=== PATIENT | female | born 1935 | race African-American/Black ===

== ENCOUNTER 2017-08-16 12:06 | Emergency (ER) | payer OTHER ==
[~2017-08-16 12:06] MED LIST: ALPR-138 PO; AMLO5TAB96 PO; CLAR10TA7 OR; DIAZIDE PO; IRBE1TAB37 PO; LORT5TAB PO; POTA-243 PO; PREV15CA20 PO; ROBA500T PO
[2017-08-16 12:43] VITALS: BP 204/95; PULSE 76; RESP 18; TEMP 98.3; O2SAT 100
[2017-08-16] MEDS ORDERED: AMLO5 PO (13:27)
[2017-08-16] MEDS ORDERED: POTA-255 PO (13:27)
[2017-08-16] MEDS ORDERED: ROBA500T PO (13:27)
[2017-08-16] MEDS ORDERED: FURO1TAB60 PO (13:27)
[2017-08-16] MEDS ORDERED: IRBE75TA5 PO (13:27)
[2017-08-16] MEDS ORDERED: PREV30CA36 PO (13:27)
[2017-08-16] MEDS ORDERED: CLAR10CA3 PO (13:27)
[2017-08-16] MEDS ORDERED: ALPR.25 PO (13:27)
[2017-08-16 15:42] LABS: AUTOMATED NEUTROPHIL # 4.5 TH/MM3 (1.8-7.7); BASOPHIL % 0.5 % (0.0-2.0); EOSINOPHIL # 0.3 TH/MM3 (0-0.4); EOSINOPHIL % 3.3 % (0.0-4.0); HEMATOCRIT 36.1 % (35.0-46.0); HEMOGLOBIN 12.3 GM/DL (11.6-15.3); LYMPHOCYTE # 2.6 TH/MM3 (1.0-4.8); MEAN CELL VOLUME 90.3 FL (80.0-100.0); MEAN CORPUSCULAR HEMOGLOBIN 30.8 PG (27.0-34.0); MEAN CORPUSCULAR HGB CONC 34.1 % (32.0-36.0); MONO % 6.6 % (0.0-8.0); MONOCYTE # 0.5 TH/MM3 (0-0.9); NEUT % 56.6 % (16.0-70.0); PLATELET COUNT 227 TH/MM3 (150-450); WHITE BLOOD COUNT 7.9 TH/MM3 (4.0-11.0)
[2017-08-16 16:03] LABS: ALBUMIN 3.7 GM/DL (3.4-5.0); AST (GOT) 31 U/L (15-37); BICARBONATE 26.8 MEQ/L (21.0-32.0); BLOOD UREA NITROGEN 10 MG/DL (7-18); CALCIUM 8.9 MG/DL (8.5-10.1); CHLORIDE 108 MEQ/L (98-107); CREATININE 0.77 MG/DL (0.50-1.00); GLOMERULAR FILTRATION RATE 86 ML/MIN (>89); GLUCOSE,RANDOM 93 MG/DL (74-106); MAGNESIUM 2.5 MG/DL (1.5-2.5); SODIUM (NA) 144 MEQ/L (136-145)
[2017-08-16 16:07] LABS: ALKALINE PHOSPHATASE 80 U/L (45-117); ALT (GPT) 25 U/L (10-53); TOTAL BILIRUBIN ADULT 0.4 MG/DL (0.2-1.0); TOTAL PROTEIN 7.1 GM/DL (6.4-8.2)
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
[2017-08-16] MEDS ORDERED: ACETAMINOPHEN 325 MG TAB PO ONE (18:15)
--- NOTE | 2017-08-16 19:14 | RADRPT ---
EXAM DATE/TIME: 08/16/2017 18:27 [facility] COMPARISON: No previous studies available for comparison. INDICATIONS : Right ankle swelling. MEDICAL HISTORY : None. SURGICAL HISTORY : None. ENCOUNTER: Initial ACUITY: 3 months PAIN SCORE: 3/10 LOCATION: Right ankle. FINDINGS: Three view exam was performed of the right ankle. The bony structures are in normal alignment. No e vidence of fracture, dislocation. The ankle mortise is intact. No radiopaque foreign bodies are seen . Bony mineralization is normal. CONCLUSION: 1. Soft tissue swelling at the right ankle. No acute fracture. Ha Cosme MD on August 16, 2017 at 19:11 Board Certified Radiologist. This report was verified electronically.
--- NOTE | 2017-08-16 19:15 | RADRPT ---
EXAM DATE/TIME: 08/16/2017 18:29 [facility] COMPARISON: No previous studies available for comparison. INDICATIONS : Left ankle swelling for several months. MEDICAL HISTORY : None. SURGICAL HISTORY : None. ENCOUNTER: Initial ACUITY: 3 months PAIN SCORE: 3/10 LOCATION: Left ankle. FINDINGS: Three view exam was performed of the left ankle. The bony structures are in normal alignment. No ev idence of fracture, dislocation. The ankle mortise is intact. No radiopaque foreign bodies are seen . Bony mineralization is normal. CONCLUSION: 1. Soft tissue swelling at left ankle. No acute bony abnormality. Ha Cosme MD on August 16, 2017 at 19:12 Board Certified Radiologist. This report was verified electronically.
--- NOTE | 2017-08-16 19:16 | RADRPT ---
EXAM DATE/TIME: 08/16/2017 18:32 [facility] COMPARISON: No previous studies available for comparison. INDICATIONS : Lower extremitiy swelling for 3 months. MEDICAL HISTORY : None. SURGICAL HISTORY : None. ENCOUNTER: Initial ACUITY: 3 months PAIN SCORE: 0/10 LOCATION: Bilateral chest FINDINGS: A single view of the chest demonstrates the lungs to be symmetrically aerated without evidence of mas s, infiltrate or effusion. Mild basilar atelectasis. The cardiomediastinal contours are unremarkable. Osseous structures are intact. CONCLUSION: 1. Minimal basilar atelectasis but no consolidation or significant effusion. Ha Cosme MD on August 16, 2017 at 19:12 Board Certified Radiologist. This report was verified electronically.
--- NOTE | 2017-08-16 19:18 | PD ---
Physical Exam Date Seen by Provider: Aug 16, 2017 Time Seen by Provider: 19:03 Data Data Last Documented VS Vital Signs Date Time Temp Pulse Resp B/P (MAP) Pulse Ox O2 Delivery O2 Flow Rate FiO2 08/16/17 20:21 94 16 193/81 (118) 99 Room Air 08/16/17 12:43 98.3 Orders Orders Complete Blood Count With Diff (08/16/17 12:45) Comprehensive Metabolic Panel (08/16/17 12:45) B-Type Natriuretic Peptide (08/16/17 12:45) Magnesium (Mg) (08/16/17 12:45) Ankle, Complete ([id number]) (08/16/17 18:02) Ankle, Complete ([id number]) (08/16/17 18:02) Chest, Single Ap (08/16/17 18:02) Acetaminophen (Tylenol) (08/16/17 18:15) Furosemide Inj (Lasix Inj) (08/16/17 19:45) Hydralazine Inj (Apresoline Inj) (08/16/17 19:45) Amlodipine (Norvasc) (08/16/17 19:45) Ed Discharge Order (08/16/17 20:31) Labs Laboratory Tests Test 08/16/17 13:34 White Blood Count 7.9 TH/MM3 Red Blood Count 4.00 MIL/MM3 Hemoglobin 12.3 GM/DL Hematocrit 36.1 % Mean Corpuscular Volume 90.3 FL Mean Corpuscular Hemoglobin 30.8 PG Mean Corpuscular Hemoglobin Concent 34.1 % Red Cell Distribution Width 13.0 % Platelet Count 227 TH/MM3 Mean Platelet Volume 8.0 FL Neutrophils (%) (Auto) 56.6 % Lymphocytes (%) (Auto) 33.0 % Monocytes (%) (Auto) 6.6 % Eosinophils (%) (Auto) 3.3 % Basophils (%) (Auto) 0.5 % Neutrophils # (Auto) 4.5 TH/MM3 Lymphocytes # (Auto) 2.6 TH/MM3 Monocytes # (Auto) 0.5 TH/MM3 Eosinophils # (Auto) 0.3 TH/MM3 Basophils # (Auto) 0.0 TH/MM3 CBC Comment DIFF FINAL Differential Comment Blood Urea Nitrogen 10 MG/DL Creatinine 0.77 MG/DL Random Glucose 93 MG/DL Total Protein 7.1 GM/DL Albumin 3.7 GM/DL Calcium Level 8.9 MG/DL Magnesium Level 2.5 MG/DL Alkaline Phosphatase 80 U/L Aspartate Amino Transf (AST/SGOT) 31 U/L Alanine Aminotransferase (ALT/SGPT) 25 U/L Total Bilirubin 0.4 MG/DL Sodium Level 144 MEQ/L Potassium Level 3.6 MEQ/L Chloride Level 108 MEQ/L Carbon Dioxide Level 26.8 MEQ/L Anion Gap 9 MEQ/L Estimat Glomerular Filtration Rate 86 ML/MIN B-Type Natriuretic Peptide 106 PG/ML [facility] Medical Record Reviewed: Yes Supervised Visit with RAVINDER: Yes Interpretation(s) Right ankle: Negative for acute fracture. Degenerative changes. Left ankle: Negative for acute fracture. Degenerative changes. Chest x-ray: Mild cardiomegaly. Mild increased vascular markings. Differential Diagnosis . Narrative Course X-ray of the ankles are negative for acute bony injury. Chest x-ray shows only mild increased vascular markings. Patient's BNP is only 109. Patient is currently on Lasix. She is encouraged to continue her Lasix, decrease salt intake and elevate. Follow-up with her primary care doctor. At time of discharge it was noted that the patient has had uncontrolled hypertension since her presentation to the ER today. She had not taken any of her medications prior to coming in. Patient is given her 5 mg dose of Norvasc, 20 mg of hydralazine IV, and 40 mg of Lasix IV. The patient has been reevaluated. Her blood pressure is coming down nicely. She is encouraged to go home and take her remaining blood pressure medications. Patient states verbal understanding. She has agreed to the treatment plan of follow-up. Diagnosis Primary Impression: Bilateral lower extremity edema Additional Impression: hypertension Referrals: Primary Care Physician Patient Instructions: General Instructions, Chronic Hypertension (ED), Leg Edema (ED), Hypertension (ED) Additional Instruction: Continue Lasix as prescribed Continue blood pressure medication as prescribed in follow-up with primary care provider in regards to elevated blood pressure and possible need for blood pressure medication adjustment Continue potassium as prescribed Tylenol as directed and as needed for pain Follow-up with primary care provider Follow-up with neurology at your scheduled appointment Return to the emergency department immediately with worsening of symptoms Disposition: 01 DISCHARGE HOME Condition: Stable Ha Arriaga Aug 16, 2017 19:18
[2017-08-16 19:26] VITALS: BP 226/101; PULSE 71; RESP 15; O2SAT 99
[2017-08-16] MEDS ORDERED: hydrALAZINE HCL 20 MG/ML VIAL IV PUSH ONE (19:45)
[2017-08-16] MEDS ORDERED: amLODIPine BESYLATE 5 MG TAB PO ONE (19:45)
[2017-08-16] MEDS ORDERED: FUROSEMIDE 40 MG/4 ML VIAL IV PUSH ONE (19:45)
[2017-08-16 20:21] VITALS: BP 193/81; PULSE 94; RESP 16; O2SAT 99
[2017-08-16 20:35] VITALS: BP 178/77; PULSE 99; RESP 16; O2SAT 100
== END 2017-08-16 20:59 | disposition home or self-care (01) ==
LOC: NEPD 12:06
DX: R60.0 Localized edema (principal); M25.572 Pain in left ankle and joints of left foot; M25.571 Pain in right ankle and joints of right foot; I10 Essential (primary) hypertension; F41.9 Anxiety disorder, unspecified; K21.9 Gastro-esophageal reflux disease without esophagitis; E07.9 Disorder of thyroid, unspecified
CPT/HCPCS: 71045; 73610; 80053; 83735; 83880; 85025; 96374; 96375; 99284; J0360; J1940

== ENCOUNTER 2018-03-05 18:26 | Observation (INO) ==
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
[2018-03-05 20:50] LABS: Baso # (Auto) 0.1 th/mm3 (0.0-0.2); Baso % (Auto) 0.7 % (0.0-2.0); Eos # (Auto) 0.2 th/mm3 (0.0-0.4); Eos % (Auto) 2.1 % (0.0-4.0); Hematocrit 40.9 % (35.0-46.0); Hemoglobin 13.7 gm/dL (11.6-15.3); Lymph # (Auto) 2.9 th/mm3 (1.0-4.8); Lymph % (Auto) 36.8 % (9.0-44.0); Mean Corpuscular HGB Conc 33.5 % (32.0-36.0); Mean Corpuscular Hemoglobin 31.4 pg (27.0-34.0); Mean Corpuscular Volume 93.8 fL (80.0-100.0); Mean Platelet Volume 7.6 fL (7.0-11.0); Mono # (Auto) 0.5 th/mm3 (0.0-0.9); Mono % (Auto) 6.7 % (0.0-8.0); Neut # (Auto) 4.3 th/mm3 (1.8-7.7); Neut % (Auto) 53.7 % (16.0-70.0); Platelet Count 231 th/mm3 (150-450); Red Blood Count 4.36 mil/mm3 (4.00-5.30); Red Cell Distribution Width 13.8 % (11.6-17.2); White Blood Count 7.9 th/mm3 (4.0-11.0)
--- NOTE | 2018-03-05 20:56 | CT ---
EXAM DATE: 03/05/2018 8:17 PM EDT AGE/SEX: 82 years / Female INDICATIONS: Right side facial numbness, headache. CLINICAL DATA: This is the patient's initial encounter. Patient reports that signs and symptoms have been present for 3 days and indicates a pain score of 4/10. MEDICAL/SURGICAL HISTORY: None. None. RADIATION DOSE: 18.39 CTDI (mGy) COMPARISON: No prior exams available for comparison. TECHNIQUE: Contiguous axial images were obtained using helical multirow detector technique. The vol umetric data was post-processed with multiplanar reconstruction in oblique axial, sagittal, and coron al planes. Using automated exposure control and adjustment of the mA and/or kV according to patient s ize, radiation dose was kept as low as reasonably achievable to obtain optimal diagnostic quality hector ges. DICOM format image data is available electronically for review and comparison. FINDINGS: There is moderate degenerative disc disease in the cervical spine with a minimal degenerative anterol isthesis of C3 on C4. There is partial fusion across C4-5 including at the posterior elements. There is multilevel mild bilateral foraminal encroachment between C3 and C7. No acute fracture or spo ndylolisthesis. CONCLUSION: 1. Moderate degenerative disc disease and facet arthropathy with a minimal degenerative anterolisthe sis of C3 on C4. Advanced left-sided facet arthropathy at C3-4. Partial fusion across C4-5. No acute fracture. Electronically signed by: Ha Cosme MD 03/05/2018 8:55 PM EDT
--- NOTE | 2018-03-05 20:59 | CT ---
EXAM DATE: 03/05/2018 8:17 PM EDT AGE/SEX: 82 years / Female INDICATIONS: Right side facial numbness, headache. CLINICAL DATA: This is the patient's initial encounter. Patient reports that signs and symptoms have been present for 3 days and indicates a pain score of 5/10. MEDICAL/SURGICAL HISTORY: None. None. RADIATION DOSE: 34.21 CTDI (mGy) COMPARISON: No prior exams available for comparison. TECHNIQUE: CT of the head without contrast. Using automated exposure control and adjustment of the mA and/or kV according to patient size, radiation dose was kept as low as reasonably achievable to ob tain optimal diagnostic quality images. DICOM format image data is available electronically for revi ew and comparison. FINDINGS: Cerebrum: The ventricles are normal for age. No evidence of midline shift, mass lesion, hemorrhage or acute infarction. No extraaxial fluid collections are seen. Posterior Fossa: The cerebellum and brainstem are intact. The 4th ventricle is midline. The cerebe llopontine angle is unremarkable. Extracranial: The visualized portion of the orbits is intact. Opacification of the left sphenoid sin us. Skull: The calvaria is intact. No evidence of skull fracture. CONCLUSION: 1. No acute intracranial abnormalities. Sinusitis of the septated left sphenoid. . Electronically signed by: Ha Cosme MD 03/05/2018 8:57 PM EDT
[2018-03-05 21:06] LABS: Albumin 3.7 g/dL (3.4-5.0); Anion Gap 10 meq/L (5-15); Aspartate Aminotransferase 25 U/L (15-37); Blood Urea Nitrogen 16 mg/dL (7-18); Calcium 8.9 mg/dL (8.5-10.1); Carbon Dioxide 25.5 meq/L (21.0-32.0); Chloride 108 meq/L (98-107); Glomerular Filtration Rate 77 mL/min (>89); Glucose,Random 95 mg/dL (74-106); Potassium 3.4 meq/L (3.5-5.1); Sodium 143 meq/L (136-145)
[2018-03-05 21:12] LABS: Alanine Aminotransferase 20 U/L (10-53); Alkaline Phosphatase 81 U/L (45-117); Total Protein 7.4 g/dL (6.4-8.2)
--- NOTE | 2018-03-05 23:33 | P.HPIM ---
History of Present Illness Service: [facility] Primary Care Physician: Yi Oliveira MD Chief Complaint: right facial numbness History of Present Illness: 82 y/o with a history of HTN, hyprothyroid, neuropathy and anxiety presented to the ED with complaints of facial numbness. Patient states 3 days ago her numbness to her right side of her face began. She states it extends from the top of her head down to her neck and at times her neck stiffens. She called her neurologist and he suggested she come to the ER to be evaluated for a stroke. She states the numbness is constant and has been getting increasingly worse over the 3 days. She does have neuropathy in her hands and feet but she states that is unchanged. She denies any weakness in any extremities, dizziness, headache, blurred vision, chest pain or sob. She does complain of a slight pain with palpation to the right jaw area toward the ear. [facility] - History History Provided By: Patient - Medical History Medical History: Medical History (Last Updated 03/06/18 @ 01:26 by LINDSAY Lopez) Anxiety HTN (hypertension) Hypothyroidism Nerve damage of left foot Nerve damage of right foot Ruptured disk - Surgical History Surgical History: Surgical History (Last Reviewed 03/06/18 @ 01:27 by LINDSAY Lopez) Cervical vertebral fusion - Family History Family History: Family History (Last Reviewed 03/06/18 @ 01:27 by LINDSAY Lopez) Father HTN (hypertension) - Social History I have reviewed the patient's Social History: Yes - Tobacco History Second Hand Smoke Exposure: No Tobacco Use In Past 30 Days: No Smoking Status: Never smoker - Alcohol History How Often Do You Have a Drink Containing Alcohol: Never - Substance Use History Substance History: No History of Abuse - Travel History Recent Travel in the [place] Within the Last 8 Weeks: No Recent Travel Out of the Country Within the Last 8 Weeks: No - Immunization History Tetanus Immunization: >5 Years Medications and Allergies Active Medications: Active Medications Acetaminophen (Tylenol) 650 mg PO Q4H PRN PRN Reason: Temp > 100.4 Ondansetron HCl (Zofran Inj) 4 mg IV.PUSH Q6H PRN PRN Reason: NAUSEA OR VOMITING Allergies Allergy/AdvReac Type Severity Reaction Status Date / Time ciprofloxacin Allergy Intermediate Hives Verified 03/05/18 23:49 diazepam Allergy Intermediate Hives Verified 03/05/18 23:49 penicillin G Allergy Mild Hives Verified 03/05/18 23:49 MYELOGRAM DYE AdvReac Intermediate Hives Uncoded 03/05/18 23:49 Home Medications Medication Instructions Recorded Confirmed Type acetaminophen [Tylenol] 325 mg PO Q4-6H PRN 03/05/18 03/05/18 History allopurinol [Zyloprim] 100 mg PO DAILY 03/05/18 03/05/18 History alprazolam [Xanax] 1 mg PO BID 03/05/18 03/05/18 History aspirin [Aspirin Low Dose] 81 mg PO DAILY 03/05/18 03/05/18 History levothyroxine 100 mcg PO DAILY 03/05/18 03/05/18 History ranitidine HCl 150 mg PO BID 03/05/18 03/05/18 History Exam Vital signs: Vital Signs 03/05/18 18:32 03/05/18 18:36 03/05/18 23:29 Temperature 98.5 F Pulse Rate 86 83 77 Respiratory Rate 18 18 17 Blood Pressure 204/83 H 219/84 H 221/90 H Pulse Oximetry 98 99 Intake & Output 03/05/18 03/05/18 03/06/18 06:59 18:59 06:59 Weight 83.007 kg Narrative: GENERAL: This is a well-nourished, well-developed patient, in no apparent distress. CARDIOVASCULAR: Regular rate and rhythm without murmurs, gallops, or rubs. RESPIRATORY: Clear to auscultation. Breath sounds equal bilaterally. No wheezes , rales, or rhonchi. GASTROINTESTINAL: Abdomen soft, non-tender, nondistended. Normal active bowel sounds MUSCULOSKELETAL: +1 bilateral lower extremity edema NEURO: Alert & Oriented x4 to person, place, time, situation. Moves all ext x4 , decreased sensation on right cheek, no extremity drift, no facial droop, tongue midline. Results - Labs CBC & Chem 7: 03/05/18 20:23 03/05/18 20:23 Labs: Short CBC 03/05/18 Range/Units 20:23 WBC 7.9 (4.0-11.0) th/mm3 Hgb 13.7 (11.6-15.3) gm/dL Hct 40.9 (35.0-46.0) % Plt Count 231 (150-450) th/mm3 BMP 03/05/18 20:23 Sodium 143 Potassium 3.4 L Chloride 108 H Carbon Dioxide 25.5 BUN 16 Creatinine 0.85 Calcium 8.9 Cardiac Enzymes 03/05/18 Range/Units 20:23 Troponin I Less than 0.02 L (0.02-0.05) ng/mL Liver Function 03/05/18 Range/Units 20:23 Total Bilirubin 0.4 (0.2-1.0) mg/dL AST 25 (15-37) U/L ALT 20 (10-53) U/L Alkaline Phosphatase 81 (45-117) U/L Albumin 3.7 (3.4-5.0) g/dL - Imaging Impressions Cervical Spine CT 03/05/18 19:51 CONCLUSION: 1. Moderate degenerative disc disease and facet arthropathy with a minimal degenerative anterolisthesis of C3 on C4. Advanced left-sided facet arthropathy at C3-4. Partial fusion across C4-5. No acute fracture. Head CT 03/05/18 19:51 CONCLUSION: 1. No acute intracranial abnormalities. Sinusitis of the septated left sphenoid. . Caprini VTE Risk Assessment Caprini VTE Risk Assessment: Moderate/High Risk (score >= 2) Caprini Risk Assessment Model: Point Value = 1 Point Value = 2 Point Value = 3 Point Value = 5 Age 41-60 Minor surgery BMI > 25 kg/m2 Swollen legs Varicose veins or History of unexplained or recurrent spontaneous Oral contraceptives or hormone replacement Sepsis (< 1 month) Serious lung disease, including pneumonia (< 1 month) Abnormal pulmonary function Acute myocardial infarction Congestive heart failure (< 1 month) History of inflammatory bowel disease Medical patient at bed rest Age 61-74 Arthroscopic surgery Major open surgery (> 45 min) Laparoscopic surgery (> 45 min) Malignancy Confined to bed (> 72 hours) Immobilizing plaster cast Central venous access Age >= 75 History of VTE Family history of VTE Factor V Leiden Prothrombin [id number] Lupus anticoagulant Anticardiolipin antibodies Elevated serum homocysteine Heparin-induced thrombocytopenia Other congenital or acquired thrombophilia Stroke (< 1 month) Elective arthroplasty Hip, pelvis, or leg fracture Acute spinal cord injury (< 1 month) Prophylaxis Regimen: Total Risk Factor Score Risk Level Prophylaxis Regimen 0-1 Low Early ambulation 2 Moderate Order ONE of the following: *Sequential Compression Device (SCD) *Heparin 5000 units SQ BID 3-4 Higher Order ONE of the following medications: *Heparin 5000 units SQ TID *Enoxaparin/Lovenox 40 mg SQ daily (WT < 150 kg, CrCl > 30 mL/min) *Enoxaparin/Lovenox 30 mg SQ daily (WT < 150 kg, CrCl > 10-29 mL/min) *Enoxaparin/Lovenox 30 mg SQ BID (WT < 150 kg, CrCl > 30 mL/min) AND/OR *Sequential Compression Device (SCD) 5 or more Highest Order ONE of the following medications: *Heparin 5000 units SQ TID (Preferred with Epidurals) *Enoxaparin/Lovenox 40 mg SQ daily (WT < 150 kg, CrCl > 30 mL/min) *Enoxaparin/Lovenox 30 mg SQ daily (WT < 150 kg, CrCl > 10-29 mL/min) *Enoxaparin/Lovenox 30 mg SQ BID (WT < 150 kg, CrCl > 30 mL/min) AND *Sequential Compression Device (SCD) Assessment and Plan - Plan 82 y/o with a history of HTN, hyprothyroid, neuropathy and anxiety presented to the ED with complaints of facial numbness. Patient states 3 days ago her numbness to her right side of her face began. Facial numbness, r/o cva Head ct reviewed and shows no acute abnormalities -MRI ordered -Carotid US ordered -Consult neurology for evaluation -neuro checks -Check TSH HTN, chronic, currently stable -Resume home medications, monitor vitals Hypothyroid, chronic -Resume home medications DVT prophylaxis: SCDs Discussed Condition With: Patient and rN
[2018-03-05] MEDS: Acetaminophen 325 MG Tablet PO PRN (23:59)
[2018-03-06] MEDS: Levothyroxine 100 MCG Tablet PO SCH (06:44)
[2018-03-06 07:26] LABS: Baso % (Auto) 0.6 % (0.0-2.0); Eos # (Auto) 0.2 th/mm3 (0.0-0.4); Eos % (Auto) 2.6 % (0.0-4.0); Hematocrit 37.1 % (35.0-46.0); Hemoglobin 12.6 gm/dL (11.6-15.3); Lymph # (Auto) 2.2 th/mm3 (1.0-4.8); Lymph % (Auto) 31.1 % (9.0-44.0); Mean Corpuscular HGB Conc 33.9 % (32.0-36.0); Mean Corpuscular Hemoglobin 31.9 pg (27.0-34.0); Mean Corpuscular Volume 94.1 fL (80.0-100.0); Mean Platelet Volume 7.2 fL (7.0-11.0); Mono # (Auto) 0.6 th/mm3 (0.0-0.9); Mono % (Auto) 8.2 % (0.0-8.0); Neut % (Auto) 57.5 % (16.0-70.0); Platelet Count 232 th/mm3 (150-450); Red Blood Count 3.95 mil/mm3 (4.00-5.30); Red Cell Distribution Width 13.2 % (11.6-17.2)
[2018-03-06 08:09] LABS: Anion Gap 8 meq/L (5-15); Blood Urea Nitrogen 10 mg/dL (7-18); Calcium 8.5 mg/dL (8.5-10.1); Carbon Dioxide 29.7 meq/L (21.0-32.0); Chloride 107 meq/L (98-107); Glomerular Filtration Rate Greater Than 89 mL/min (>89); Glucose,Random 92 mg/dL (74-106); Potassium 3.4 meq/L (3.5-5.1); Sodium 145 meq/L (136-145)
--- NOTE | 2018-03-06 09:33 | MR ---
EXAM DATE: 03/06/2018 7:26 AM EDT AGE/SEX: 82 years / Female INDICATIONS: Right sided weakness. CLINICAL DATA: This is the patient's initial encounter. Patient reports that signs and symptoms have been present for 2 days and indicates a pain score of 0/10. MEDICAL/SURGICAL HISTORY: Hypertension. Hypothyroidism. Fusion, cervical. COMPARISON: No prior exams available for comparison. TECHNIQUE: 3D [id number] MRA was performed. Source images, multiplanar STS MIP, and 3D volum e MIP reconstructions were reviewed. FINDINGS: There is excellent visualization of the major intracranial arteries out to the second-order branch ve ssels. There appears to be a focal short segment stenosis involving the A1 segment on the left. The A1 segment on the right is patent throughout its extent. The M1 segments are patent bilaterally. The anterior cerebral arteries and posterior cerebral arteries are patent. There are bilateral posterior to communicating arteries which are patent. No evidence of cerebral aneurysm or AVM. No segmental occ lusion. CONCLUSION: 1. There is a focal short segment stenosis involving the A1 segment on the left. This most likely fr om atherosclerotic changes. 2. Otherwise, the rest of the MRA of the brain is within normal limits for patient's age. Electronically signed by: Corwin Quinonez MD 03/06/2018 9:32 AM EDT
--- NOTE | 2018-03-06 09:35 | P.CONNEU ---
History of Present Illness Service: Neurology Primary Care Provider: Yi Oliveira MD Chief Complaint: right facial numbness History of Present Illness: 82-year-old female admitted for right facial tingling. States is been ongoing for the past several days wakes up with it and then dissipates. States she has had it before. States she does have a history of chronic neck pain head pain and sensitivity to her whole scalp for the past few years ever since she had a head injury and concussion. She follows up for the symptoms in the outpatient setting by local neurologist. She states she came in for further evaluation as his symptoms felt a little more intense. Denies any vision loss jaw claudication fever night sweats or chills or any focal weakness. She does have chronic gait impairment from her previous concussive injury. CT brain scan negative.'s been found to have significantly elevated blood pressure systolics over 200 since admission Review of Systems All other systems reviewed negative except as stated in [facility] - History History Provided By: Patient - Medical History Medical History: Medical History (Last Updated 03/06/18 @ 01:26 by LINDSAY Lopez) Anxiety HTN (hypertension) Hypothyroidism Nerve damage of left foot Nerve damage of right foot Ruptured disk - Surgical History Surgical History: Surgical History (Last Reviewed 03/06/18 @ 01:27 by LINDSAY Lopez) Cervical vertebral fusion - Family History Family History: Family History (Last Reviewed 03/06/18 @ 01:27 by LINDSAY Lopez) Father HTN (hypertension) - Tobacco History Second Hand Smoke Exposure: No Tobacco Use In Past 30 Days: No Smoking Status: Never smoker - Alcohol History How Often Do You Have a Drink Containing Alcohol: Never - Substance Use History Substance History: No History of Abuse - Travel History Recent Travel in the [place] Within the Last 8 Weeks: No Recent Travel Out of the Country Within the Last 8 Weeks: No - Immunization History Tetanus Immunization: >5 Years Medications and Allergies Active Medications: Active Medications Acetaminophen (Tylenol) 650 mg PO Q4H PRN PRN Reason: Temp > 100.4 Last Admin: 03/05/18 23:59 Dose: 650 mg Allopurinol (Zyloprim) 100 mg PO DAILY DAVID Alprazolam (Xanax) 1 mg PO BID DAVID Last Admin: 03/06/18 08:47 Dose: 1 mg Aspirin (Ecotrin) 81 mg PO DAILY [facility] Famotidine (Pepcid) 20 mg PO BID [facility] Levothyroxine Sodium (Synthroid) 100 mcg PO DAILY@0700 [facility] Last Admin: 03/06/18 06:44 Dose: 100 mcg Ondansetron HCl (Zofran Inj) 4 mg IV.PUSH Q6H PRN PRN Reason: NAUSEA OR VOMITING Allergies Allergy/AdvReac Type Severity Reaction Status Date / Time ciprofloxacin Allergy Intermediate Hives Verified 03/05/18 23:49 diazepam Allergy Intermediate Hives Verified 03/05/18 23:49 penicillin G Allergy Mild Hives Verified 03/05/18 23:49 MYELOGRAM DYE AdvReac Intermediate Hives Uncoded 03/05/18 23:49 Home Medications Medication Instructions Recorded Confirmed Type acetaminophen [Tylenol] 325 mg PO Q4-6H PRN 03/05/18 03/05/18 History alprazolam [Xanax] 0.25 mg PO BID 03/05/18 03/06/18 History aspirin [Aspirin Low Dose] 81 mg PO DAILY 03/05/18 03/05/18 History levothyroxine 100 mcg PO DAILY 03/05/18 03/05/18 History ranitidine HCl 150 mg PO BID 03/05/18 03/05/18 History amlodipine 2.5 mg PO DAILY 03/06/18 03/06/18 History loratadine 10 mg PO DAILY 03/06/18 03/06/18 History losartan 25 mg PO DAILY 03/06/18 03/06/18 History potassium chloride 10 meq PO BID 03/06/18 03/06/18 History Exam Vital signs: Vital Signs 03/05/18 18:32 03/05/18 18:36 03/05/18 23:29 Temperature 98.5 F Pulse Rate 86 83 77 Respiratory Rate 18 18 17 Blood Pressure 204/83 H 219/84 H 221/90 H Pulse Oximetry 98 99 03/06/18 01:56 03/06/18 06:15 03/06/18 06:16 Temperature Pulse Rate 72 69 69 Respiratory Rate 18 20 20 Blood Pressure 187/77 H 186/83 H 186/83 H Pulse Oximetry 99 97 Intake & Output 03/05/18 03/06/18 03/06/18 18:59 06:59 18:59 Weight 83.007 kg Narrative: GENERAL: in NAD, SKIN: Warm and dry. Generalized sensitivity on her whole scalp no discrete area HEAD: Atraumatic. Normocephalic. EYES: Pupils equal and round. No scleral icterus. ENT: No nasal bleeding or discharge. Mucous membranes pink and moist. NECK: Trachea midline. No JVD. CARDIOVASCULAR: Regular rate and rhythm. RESPIRATORY: No accessory muscle use. GASTROINTESTINAL: Abdomen soft, non-tender, nondistended. MUSCULOSKELETAL: Extremities without clubbing, cyanosis, or edema. No obvious deformities. NEUROLOGICAL: Awake and alert. Oriented 2-3, no aphasia, fluent articulate, No facial asymmetry, OU 3-2mm, eomi, VFF, No drift, Motor grossly within normal limits. Five out of 5 muscle strength in the arms and legs. Tone normal in all 4 limbs, Sensory normal in all 4 extremities to pin, msr 1-2+ sym, no clonus, planterflexor, gait not assessed secondary to fall risk PSYCHIATRIC: Appropriate mood and affect; insight and judgment normal. - Constitutional no acute distress - Routine HEENT Exam Head: Present: normocephalic Eye: Present: EOMI Results - Labs CBC & Chem 7: 03/06/18 06:55 03/06/18 06:55 Labs: Laboratory Results - last 24 hr 03/05/18 03/05/18 03/05/18 20:23 20:23 20:23 WBC 7.9 RBC 4.36 Hgb 13.7 Hct 40.9 MCV 93.8 MCH 31.4 MCHC 33.5 RDW 13.8 Plt Count 231 MPV 7.6 Neut % (Auto) 53.7 Lymph % (Auto) 36.8 [place] % (Auto) 6.7 Eos % (Auto) 2.1 Baso % (Auto) 0.7 Neut # (Auto) 4.3 Lymph # (Auto) 2.9 [place] # (Auto) 0.5 Eos # (Auto) 0.2 Baso # (Auto) 0.1 WBC Differential . Differential Comment Auto diff final Sodium 143 Potassium 3.4 L Chloride 108 H Carbon Dioxide 25.5 Anion Gap 10 BUN 16 Creatinine 0.85 Estimated GFR 77 L Random Glucose 95 Calcium 8.9 Total Bilirubin 0.4 AST 25 ALT 20 Alkaline Phosphatase 81 Troponin I Less than 0.02 L Total Protein 7.4 Albumin 3.7 TSH 4.360 H 03/06/18 03/06/18 06:55 06:55 WBC 7.0 RBC 3.95 L Hgb 12.6 Hct 37.1 MCV 94.1 MCH 31.9 MCHC 33.9 RDW 13.2 Plt Count 232 MPV 7.2 Neut % (Auto) 57.5 Lymph % (Auto) 31.1 [place] % (Auto) 8.2 H Eos % (Auto) 2.6 Baso % (Auto) 0.6 Neut # (Auto) 4.0 Lymph # (Auto) 2.2 [place] # (Auto) 0.6 Eos # (Auto) 0.2 Baso # (Auto) 0.0 WBC Differential . Differential Comment Auto diff final Sodium 145 Potassium 3.4 L Chloride 107 Carbon Dioxide 29.7 Anion Gap 8 BUN 10 Creatinine 0.67 Estimated GFR Greater than 89 Random Glucose 92 Calcium 8.5 Total Bilirubin AST ALT Alkaline Phosphatase Troponin I Total Protein Albumin TSH - Imaging Impressions Cervical Spine CT 03/05/18 19:51 CONCLUSION: 1. Moderate degenerative disc disease and facet arthropathy with a minimal degenerative anterolisthesis of C3 on C4. Advanced left-sided facet arthropathy at C3-4. Partial fusion across C4-5. No acute fracture. Head CT 03/05/18 19:51 CONCLUSION: 1. No acute intracranial abnormalities. Sinusitis of the septated left sphenoid. . Review/Management - Diagnosis (1) Hypertensive encephalopathy Code(s): I67.4 - Hypertensive encephalopathy Status: Acute Current Visit: Yes (2) Cervical spondylosis Code(s): M47.812 - Spondylosis without myelopathy or radiculopathy, cervical region Status: Acute Current Visit: Yes (3) Concussion Code(s): S06.0X9A - Concussion with loss of consciousness of unspecified duration, initial encounter Status: Acute Current Visit: Yes (4) Gait disorder Code(s): R26.9 - Unspecified abnormalities of gait and mobility Status: Acute Current Visit: Yes (5) Neuropathy Code(s): G62.9 - Polyneuropathy, unspecified Status: Acute Current Visit: Yes (6) Transient cerebral ischemia Code(s): G45.9 - Transient cerebral ischemic attack, unspecified Status: Acute Current Visit: Yes - Review/Management Plan: Current symptoms may be related to his severe hypertension with exacerbation of previous chronic neuralgia Recommendation Blood pressure control Aspirin Follow-up imaging Low-dose gabapentin Therapy Follow exam Behavioral modification and risk factor reduction. Weight loss, blood pressure control, blood sugar control, lipid control. Exercise (6) Transient cerebral ischemia Qualifiers: Transient cerebral ischemia type: unspecified Qualified Code(s): G45.9 - Transient cerebral ischemic attack, unspecified
--- NOTE | 2018-03-06 09:38 | MR ---
EXAM DATE: 03/06/2018 7:26 AM EDT AGE/SEX: 82 years / Female INDICATIONS: Right sided weakness. Headache CLINICAL DATA: This is the patient's initial encounter. Patient reports that signs and symptoms have been present for 2 days and indicates a pain score of 0/10. MEDICAL/SURGICAL HISTORY: Hypertension. Hypothyroidism. Fusion, cervical. COMPARISON: No prior exams available for comparison. TECHNIQUE: Multiplanar, multisequence examination of the brain was performed without contrast. FINDINGS: Cerebrum: The ventricles are normal for age with moderate atrophic change with sulcal and ventricula r prominence. No evidence of midline shift, mass lesion, hemorrhage or acute infarction. No extraaxi al fluid collections are seen. The pituitary gland and suprasellar cistern are normal in configurati on. White Matter: On the FLAIR weighted images there is increased signal noted in the white matter most characteristic of chronic small vessel ischemic change. Posterior Fossa: The cerebellum and brainstem are intact. The 4th ventricle is midline. The cerebel lopontine angle is unremarkable. The cerebellar tonsils are normal in position. Diffusion Imaging: No focal areas of restricted diffusion are seen. No evidence of acute infarction . Extracranial: The visualized portions of the orbits are unremarkable. There is opacification the lef t sphenoid sinus. CONCLUSION: 1. No acute hemorrhage, mass or infarction. 2. Opacification left sphenoid sinus. 3. Atrophy and chronic small vessel ischemic changes. Electronically signed by: Brenden Murphy MD 03/06/2018 9:36 AM EDT
--- NOTE | 2018-03-06 09:41 | P.PN ---
Subjective Interval history: Patient is resting comfortably in bed. She is still experiencing right facial pain and numbness but states it is "settling down". She has no other concerns at this time. Patient denies visual changes, chest pain, fever, chills, nausea , vomiting. Physical Exam Vital signs: Vital Signs 03/05/18 18:32 03/05/18 18:36 03/05/18 23:29 Temperature 98.5 F Pulse Rate 86 83 77 Respiratory Rate 18 18 17 Blood Pressure 204/83 H 219/84 H 221/90 H Pulse Oximetry 98 99 03/06/18 01:56 03/06/18 06:15 03/06/18 06:16 Temperature Pulse Rate 72 69 69 Respiratory Rate 18 20 20 Blood Pressure 187/77 H 186/83 H 186/83 H Pulse Oximetry 99 97 Intake & Output 03/05/18 03/06/18 03/06/18 18:59 06:59 18:59 Weight 83.007 kg - Constitutional no acute distress - Routine HEENT Exam Head: Present: normocephalic, atraumatic Eye: Present: EOMI, PERRL ENT: Present: mucous membranes moist - Routine Neck Exam Present: full ROM. Absent: JVD, carotid bruit - Routine Respiratory Exam Present: CTA bilaterally. Absent: rhonchi, stridor, wheezes, crackles - Routine Cardiovascular Exam Present: RRR, S1, S2. Absent: murmur, gallop, rubs - Routine Abdominal Exam Present: soft, normoactive bowel sounds. Absent: tenderness, distended - Routine Extremities Exam Present: edema (of the lower extremiy), full ROM. Absent: cyanosis, clubbing - Routine Skin Exam Present: intact, dry. Absent: cyanosis, erythema - Routine Neurological Exam Present: alert, oriented X3, CN II-XII intact. Absent: motor deficit Results - Labs CBC & Chem 7: 03/06/18 06:55 03/06/18 06:55 Laboratory Results - last 24 hr 03/05/18 03/05/18 03/05/18 20:23 20:23 20:23 WBC 7.9 RBC 4.36 Hgb 13.7 Hct 40.9 MCV 93.8 MCH 31.4 MCHC 33.5 RDW 13.8 Plt Count 231 MPV 7.6 Neut % (Auto) 53.7 Lymph % (Auto) 36.8 [place] % (Auto) 6.7 Eos % (Auto) 2.1 Baso % (Auto) 0.7 Neut # (Auto) 4.3 Lymph # (Auto) 2.9 [place] # (Auto) 0.5 Eos # (Auto) 0.2 Baso # (Auto) 0.1 WBC Differential . Differential Comment Auto diff final Sodium 143 Potassium 3.4 L Chloride 108 H Carbon Dioxide 25.5 Anion Gap 10 BUN 16 Creatinine 0.85 Estimated GFR 77 L Random Glucose 95 Calcium 8.9 Total Bilirubin 0.4 AST 25 ALT 20 Alkaline Phosphatase 81 Troponin I Less than 0.02 L Total Protein 7.4 Albumin 3.7 TSH 4.360 H 03/06/18 03/06/18 06:55 06:55 WBC 7.0 RBC 3.95 L Hgb 12.6 Hct 37.1 MCV 94.1 MCH 31.9 MCHC 33.9 RDW 13.2 Plt Count 232 MPV 7.2 Neut % (Auto) 57.5 Lymph % (Auto) 31.1 [place] % (Auto) 8.2 H Eos % (Auto) 2.6 Baso % (Auto) 0.6 Neut # (Auto) 4.0 Lymph # (Auto) 2.2 [place] # (Auto) 0.6 Eos # (Auto) 0.2 Baso # (Auto) 0.0 WBC Differential . Differential Comment Auto diff final Sodium 145 Potassium 3.4 L Chloride 107 Carbon Dioxide 29.7 Anion Gap 8 BUN 10 Creatinine 0.67 Estimated GFR Greater than 89 Random Glucose 92 Calcium 8.5 Total Bilirubin AST ALT Alkaline Phosphatase Troponin I Total Protein Albumin TSH - Imaging Impressions Cervical Spine CT 03/05/18 19:51 CONCLUSION: 1. Moderate degenerative disc disease and facet arthropathy with a minimal degenerative anterolisthesis of C3 on C4. Advanced left-sided facet arthropathy at C3-4. Partial fusion across C4-5. No acute fracture. Head CT 03/05/18 19:51 CONCLUSION: 1. No acute intracranial abnormalities. Sinusitis of the septated left sphenoid. . Head MRA 03/06/18 00:00 CONCLUSION: 1. There is a focal short segment stenosis involving the A1 segment on the left. This most likely from atherosclerotic changes. 2. Otherwise, the rest of the MRA of the brain is within normal limits for patient's age. Assessment and Plan - Plan Mrs. Lee is an 82 year old female admitted for worsened right facial pain tingling for the past several days. She has a history of extremity neuropathy, chronic neck pain and scalp sensitivity. Initial workup with CT C Spine, CT head, CTA, MRI, MRA, carotid U/S were negative for acute processes. Assessment/Plan: Chronic neuralgia -CT C Spine, CT Head, CTA, MRI, MRA, carotid U/S negative for acute processes. -Neuro consulted - Possible chronic neuralgia with exacerbation due to HTN -Neuro recs: -Blood pressure control -Start gabapentin, aspirin -Therapy -Follow exam -Follow-up imaging Hypertension, poorly controlled -Hydralazine PRN Hypothyroid -continue levothyroxine 100mcg Code Status: Full DVT prophylaxis:SCDs
--- NOTE | 2018-03-06 09:56 | US ---
EXAM DATE: 03/06/2018 12:00 AM EDT AGE/SEX: 82 years / Female INDICATIONS: Transient ischemic attack. CLINICAL DATA: This is the patient's initial encounter. Patient reports that signs and symptoms have been present for 1 day and indicates a pain score of 0/10. MEDICAL/SURGICAL HISTORY: Hypertension. Hypothyroidism. Anxiety. Bilateral feet nerve damage. Ruptured disk. . Cervical vertebral fusion. COMPARISON: No prior exams available for comparison. VELOCITY PARAMETERS: ICA/CCA Ratio: Right 2.1 , Left 1.6 ICA: Right 172.4 cm/sec, Left 141.5 cm/sec CCA: Right 82.3 cm/sec, Left 88.5 cm/sec ECA: Right 96.3 cm/sec, Left 72.3 cm/sec Vertebral: Right 56.8 cm/sec antegrade, Left 50.3 cm/sec antegrade FINDINGS: Right Carotid: Moderate arteriosclerotic plaque is visualized.The waveforms are within normal limits . Left Carotid: Moderate arteriosclerotic plaque is visualized. The waveforms are within normal limits . Other: None. CONCLUSION: There is moderate atherosclerotic plaquing at both carotid bifurcations. However, no foca l high-grade or hemodynamically significant stenosis is demonstrated. Electronically signed by: Corwin Quinonez MD 03/06/2018 9:54 AM EDT
--- NOTE | 2018-03-06 10:47 | MR ---
EXAM DATE: 03/06/2018 9:46 AM EDT AGE/SEX: 82 years / Female INDICATIONS: . Right side numbness. CLINICAL DATA: This is the patient's initial encounter. Patient reports that signs and symptoms have been present for 2 days and indicates a pain score of 0/10. MEDICAL/SURGICAL HISTORY: Hypertension. Hypothyroidism. Fusion, cervical. COMPARISON: [facility] [place] [facility] 07/16/2015. [facility] [place] CERVICAL SPINE W/O CONTRAST, 03/05/2018. . TECHNIQUE: Multiplanar, multisequence MRI examination of the cervical spine was performed without co ntrast. FINDINGS: Vertebrae: Normal vertebral body height. Homogeneous marrow signal. There are mild to moderate prim rogelio degenerative changes noted throughout the cervical spine. There is disc degeneration with disc sp cee narrowing from C3 through C7. No compression fracture injuries are demonstrated. Alignment: There is very mild anterior spondylolisthesis of C3 over C4 and C7 over T1. Cord: Normal configuration and signal. Post Fossa: The cerebellar tonsils are normal in position. C2-C3: The thecal sac has a normal configuration. There is no evidence of disc herniation or spinal canal stenosis. The neural foramina are patent bilaterally. C3-C4: Mild broad-based bulging. The neural foramina appear patent bilaterally. There is bilateral f acet arthritis. C4-C5: The thecal sac has a normal configuration. There is no evidence of disc herniation or spinal canal stenosis. The neural foramina are patent bilaterally. C5-C6: Mild broad-based bulging. The neural foramina are patent bilaterally. Mild facet arthritis. C6-C7: Diffuse Broad-based bulging. The neural foramina are patent bilaterally.. Mild facet arthriti s. C7-T1: No epidural impressions seen. Moderate facet arthritis. CONCLUSION: 1. There is mild to moderate primary degenerative changes, disc degeneration and disc space narrowin g throughout the cervical spine. 2. Very mild anterior spondylolisthesis of C3 over C4 and C7 over T1. 3. Mild broad-based bulging C3-4 and C5-6. 4. Diffuse broad-based bulging C6-7. 5. Bilateral facet arthritis at multiple levels. Electronically signed by: Corwin Quinonez MD 03/06/2018 10:46 AM EDT
[2018-03-06 11:07] LABS: Vitamin B12 1634 pg/mL (193-986)
[2018-03-06] MEDS: Famotidine 20 MG Tablet PO SCH ×2 (11:16→20:20)
[2018-03-06] MEDS: Allopurinol 100 MG Tablet PO SCH (11:16)
[2018-03-06] MEDS: Gabapentin 100 MG Capsule PO SCH ×3 (11:18→17:38)
[2018-03-06] MEDS ORDERED: hydrALAZINE 10 MG Tablet PO PRN (12:33)
[2018-03-06] MEDS ORDERED: hydrALAZINE HCl Inj 20 MG/ML Vial IV.PUSH ONE (12:33)
--- NOTE | 2018-03-06 12:33 | P.PN ---
Subjective Interval history: Patient is resting comfortably in bed. Still with right facial pain and numbness but states it is "settling down". No problem with swallowing. Patient denies change in vision or new motor deficit. Denies chest pain, shortness of breath, fever, chills, nausea, vomiting. Physical Exam Vital signs: Vital Signs 03/05/18 18:32 03/05/18 18:36 03/05/18 23:29 Temperature 98.5 F Pulse Rate 86 83 77 Respiratory Rate 18 18 17 Blood Pressure 204/83 H 219/84 H 221/90 H Pulse Oximetry 98 99 03/06/18 01:56 03/06/18 06:15 03/06/18 06:16 Temperature Pulse Rate 72 69 69 Respiratory Rate 18 20 20 Blood Pressure 187/77 H 186/83 H 186/83 H Pulse Oximetry 99 97 03/06/18 11:04 Temperature Pulse Rate 88 Respiratory Rate 18 Blood Pressure 206/88 H Pulse Oximetry 100 Intake & Output 03/05/18 03/06/18 03/06/18 18:59 06:59 18:59 Weight 83.007 kg Narrative: GENERAL: in NAD, SKIN: Warm and dry. Generalized sensitivity on her whole scalp no discrete area HEAD: Atraumatic. Normocephalic. EYES: Pupils equal and round. No scleral icterus. ENT: No nasal bleeding or discharge. Mucous membranes pink and moist. NECK: Trachea midline. No JVD. CARDIOVASCULAR: Regular rate and rhythm. RESPIRATORY: No accessory muscle use. GASTROINTESTINAL: Abdomen soft, non-tender, nondistended. MUSCULOSKELETAL: Extremities without clubbing, cyanosis, or edema. No obvious deformities. NEUROLOGICAL: Awake and alert. Oriented 2-3, no aphasia, fluent articulate, No facial asymmetry, OU 3-2mm, eomi, VFF, No drift, Motor grossly within normal limits. Five out of 5 muscle strength in the arms and legs. Tone normal in all 4 limbs, Sensory normal in all 4 extremities to pin, msr 1-2+ sym, no clonus, planterflexor, gait not assessed secondary to fall risk PSYCHIATRIC: Appropriate mood and affect; insight and judgment normal. Results - Labs CBC & Chem 7: 03/06/18 06:55 03/06/18 06:55 Laboratory Results - last 24 hr 03/05/18 03/05/18 03/05/18 20:23 20:23 20:23 WBC 7.9 RBC 4.36 Hgb 13.7 Hct 40.9 MCV 93.8 MCH 31.4 MCHC 33.5 RDW 13.8 Plt Count 231 MPV 7.6 Neut % (Auto) 53.7 Lymph % (Auto) 36.8 [place] % (Auto) 6.7 Eos % (Auto) 2.1 Baso % (Auto) 0.7 Neut # (Auto) 4.3 Lymph # (Auto) 2.9 [place] # (Auto) 0.5 Eos # (Auto) 0.2 Baso # (Auto) 0.1 WBC Differential . Differential Comment Auto diff final ESR Sodium 143 Potassium 3.4 L Chloride 108 H Carbon Dioxide 25.5 Anion Gap 10 BUN 16 Creatinine 0.85 Estimated GFR 77 L Random Glucose 95 Calcium 8.9 Total Bilirubin 0.4 AST 25 ALT 20 Alkaline Phosphatase 81 Troponin I Less than 0.02 L C-Reactive Protein Total Protein 7.4 Albumin 3.7 Vitamin B12 TSH 4.360 H 03/06/18 03/06/18 03/06/18 06:55 06:55 06:55 WBC 7.0 RBC 3.95 L Hgb 12.6 Hct 37.1 MCV 94.1 MCH 31.9 MCHC 33.9 RDW 13.2 Plt Count 232 MPV 7.2 Neut % (Auto) 57.5 Lymph % (Auto) 31.1 [place] % (Auto) 8.2 H Eos % (Auto) 2.6 Baso % (Auto) 0.6 Neut # (Auto) 4.0 Lymph # (Auto) 2.2 [place] # (Auto) 0.6 Eos # (Auto) 0.2 Baso # (Auto) 0.0 WBC Differential . Differential Comment Auto diff final ESR 16 Sodium 145 Potassium 3.4 L Chloride 107 Carbon Dioxide 29.7 Anion Gap 8 BUN 10 Creatinine 0.67 Estimated GFR Greater than 89 Random Glucose 92 Calcium 8.5 Total Bilirubin AST ALT Alkaline Phosphatase Troponin I C-Reactive Protein Total Protein Albumin Vitamin B12 TSH 03/06/18 06:55 WBC RBC Hgb Hct MCV MCH MCHC RDW Plt Count MPV Neut % (Auto) Lymph % (Auto) [place] % (Auto) Eos % (Auto) Baso % (Auto) Neut # (Auto) Lymph # (Auto) [place] # (Auto) Eos # (Auto) Baso # (Auto) WBC Differential Differential Comment ESR Sodium Potassium Chloride Carbon Dioxide Anion Gap BUN Creatinine Estimated GFR Random Glucose Calcium Total Bilirubin AST ALT Alkaline Phosphatase Troponin I C-Reactive Protein Less than 0.29 Total Protein Albumin Vitamin B12 1634 H TSH - Imaging Impressions Cervical Spine CT 03/05/18 19:51 CONCLUSION: 1. Moderate degenerative disc disease and facet arthropathy with a minimal degenerative anterolisthesis of C3 on C4. Advanced left-sided facet arthropathy at C3-4. Partial fusion across C4-5. No acute fracture. Head CT 03/05/18 19:51 CONCLUSION: 1. No acute intracranial abnormalities. Sinusitis of the septated left sphenoid. . Carotid Doppler Study 03/06/18 00:00 CONCLUSION: There is moderate atherosclerotic plaquing at both carotid bifurcations. However, no focal high-grade or hemodynamically significant stenosis is demonstrated. Head MRA 03/06/18 00:00 CONCLUSION: 1. There is a focal short segment stenosis involving the A1 segment on the left. This most likely from atherosclerotic changes. 2. Otherwise, the rest of the MRA of the brain is within normal limits for patient's age. Head MRI 03/06/18 07:03 CONCLUSION: 1. No acute hemorrhage, mass or infarction. 2. Opacification left sphenoid sinus. 3. Atrophy and chronic small vessel ischemic changes. Cervical Spine MRI 03/06/18 09:29 CONCLUSION: 1. There is mild to moderate primary degenerative changes, disc degeneration and disc space narrowing throughout the cervical spine. 2. Very mild anterior spondylolisthesis of C3 over C4 and C7 over T1. 3. Mild broad-based bulging C3-4 and C5-6. 4. Diffuse broad-based bulging C6-7. 5. Bilateral facet arthritis at multiple levels. Assessment and Plan - Plan Mrs. Lee is an 82 year old female admitted for worsened right facial pain tingling for the past several days. She has a history of extremity neuropathy, chronic neck pain and scalp sensitivity. Initial workup with CT C Spine, CT head, CTA, MRI, MRA, carotid U/S were negative for acute processes. Chronic neuralgia -CT C Spine, CT Head, CTA, MRI, MRA, carotid U/S negative for acute processes. -Neuro consulted - Possible chronic neuralgia with exacerbation due to HTN -Neuro recs: -Blood pressure control -Start gabapentin, aspirin -Therapy -Follow exam -Follow-up imaging Hypertension, poorly controlled -Hydralazine PRN -Restart home meds -Monitor and adjust as need Hypothyroid -continue levothyroxine 100mcg Code Status: Full DVT prophylaxis:SCDs Discussed with the patient, nurse, family at bedside
[2018-03-06] MEDS ORDERED: Labetalol HCl Inj 100 MG/20 ML Vial IV.PUSH ONE ×2 (13:00)
--- NOTE | 2018-03-06 15:19 | ECG ---
Date Performed: 03/05/2018 Time Performed: 20:06:51 PTAGE: 82 years EKG: Sinus rhythm INCOMPLETE RIGHT BUNDLE BRANCH BLOCK LEFT ANTERIOR FASCICULAR BLOCK ABNORMAL ECG PREVIOUS TRACING : 03/02/2018 11.30 Since the previous tracing, no significant change noted DOCTOR: Maycol Tyson Interpretating Date/Time 03/06/2018 15:18:15
[2018-03-06] MEDS: Acetaminophen 325 MG Tablet PO PRN ×2 (15:45→20:20)
[2018-03-07 01:25] VITALS: RESP 16
[2018-03-07] MEDS: Levothyroxine 100 MCG Tablet PO SCH (06:23)
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
[2018-03-07] MEDS: Famotidine 20 MG Tablet PO SCH (10:34)
[2018-03-07] MEDS: Allopurinol 100 MG Tablet PO SCH (10:35)
[2018-03-07] MEDS: Gabapentin 100 MG Capsule PO SCH ×2 (10:35→14:27)
[2018-03-07] MEDS: Acetaminophen 325 MG Tablet PO PRN (10:36)
[2018-03-07 12:11] VITALS: BP 121/56; PULSE 78; TEMP 97.4; O2SAT 99
--- NOTE | 2018-03-07 13:02 | P.PN ---
Subjective Interval history: Patient is seen lying in bed. She reports that her neck pain is feeling better. She appears to be a somewhat questionable historian. Nursing denies any adverse overnight events. Physical Exam Vital signs: Vital Signs 03/06/18 13:20 03/06/18 14:04 03/06/18 16:28 Temperature 97.7 F 97.7 F Pulse Rate 67 70 70 Respiratory Rate 18 20 18 Blood Pressure 144/63 H 150/74 H 175/84 H Pulse Oximetry 99 98 95 03/06/18 20:00 03/07/18 00:00 03/07/18 04:00 Temperature 97.9 F 97.6 F 97.6 F Pulse Rate 64 65 66 Respiratory Rate 18 16 16 Blood Pressure 149/69 H 118/56 L 133/67 Pulse Oximetry 98 98 99 03/07/18 07:34 03/07/18 10:30 03/07/18 12:00 Temperature 97.7 F 97.4 F L Pulse Rate 66 67 78 Respiratory Rate 16 16 Blood Pressure 142/65 H 121/56 L Pulse Oximetry 98 99 Intake & Output 03/06/18 03/07/18 03/07/18 18:59 06:59 18:59 Weight 83.007 kg Other: # Voids 1 Date of Last Bowel Movement 03/05/18 03/05/18 03/05/18 Weight On Admission 83.007 kg Narrative: GENERAL: Well-nourished, well-developed adult female in no obvious distress. SKIN: Warm and dry. HEAD: Atraumatic. Normocephalic. CARDIOVASCULAR: Regular rate and rhythm. RESPIRATORY: No accessory muscle use. Clear to auscultation. Breath sounds equal bilaterally. GASTROINTESTINAL: Abdomen soft, non-tender, non-distended. Positive bowel sounds. MUSCULOSKELETAL: Extremities without clubbing, cyanosis, or edema. No obvious deformities. Mild cervical spine tenderness. NEUROLOGICAL: Awake and alert. No obvious cranial nerve deficits. Motor grossly within normal limits. Normal speech. Facial features equal without droop. Results - Labs CBC & Chem 7: 03/06/18 06:55 03/06/18 06:55 Assessment and Plan - Plan Mrs. Lee is an 82 year old female admitted for worsened right facial pain tingling for the past several days. She has a history of extremity neuropathy, chronic neck pain and scalp sensitivity. Initial workup with CT C Spine, CT head, CTA, MRI, MRA, carotid U/S were negative for acute processes. Assessment/Plan: Chronic neuralgia -Neuro consulted - chronic neuralgia with exacerbation due to HTN; OK to discharge -Blood pressure control -Start gabapentin, aspirin Hypertension, poorly controlled -Hydralazine PRN Hypothyroid -continue levothyroxine 100mcg Code Status: Full DVT prophylaxis:SCDs
--- NOTE | 2018-03-07 13:07 | P.DS ---
Date of admission: 03/05/18 21:52 Primary care physician: Yi Oliveira MD Attending physician on discharge: Natacha Sarkar Anticipated date of discharge: 03/07/18 Brief History from admission: 82 y/o with a history of HTN, hyprothyroid, neuropathy and anxiety presented to the ED with complaints of facial numbness. Patient states 3 days ago her numbness to her right side of her face began. She states it extends from the top of her head down to her neck and at times her neck stiffens. She called her neurologist and he suggested she come to the ER to be evaluated for a stroke. She states the numbness is constant and has been getting increasingly worse over the 3 days. She does have neuropathy in her hands and feet but she states that is unchanged. She denies any weakness in any extremities, dizziness, headache, blurred vision, chest pain or sob. She does complain of a slight pain with palpation to the right jaw area toward the ear. DS: Diagnosis - Discharge Diagnosis (1) Hypertension Status: Chronic (2) Cervical spondylosis Status: Chronic (3) Neuropathy Status: Chronic DS: Medications - Discharge Medications Prescriptions: atorvastatin 20 mg PO HS #30 tab DS: Summary Hospital Course: Mrs. Lee is an 82 year old female admitted for worsened right facial pain tingling for the past several days. She has a history of extremity neuropathy, chronic neck pain and scalp sensitivity. Initial workup with CT C Spine, CT head, CTA, MRI, MRA, carotid U/S were negative for acute processes. Neuro consulted - chronic neuralgia with exacerbation due to HTN. - Time Spent with Patient Total time spent providing and/or coordinating discharge services: Less than 30 minutes - Quality: VTE Deep Vein Thrombosis/Pulmonary Embolism Present on Admission: No Exam Vital signs: Vital Signs 03/06/18 13:20 03/06/18 14:04 03/06/18 16:28 Temperature 97.7 F 97.7 F Pulse Rate 67 70 70 Respiratory Rate 18 20 18 Blood Pressure 144/63 H 150/74 H 175/84 H Pulse Oximetry 99 98 95 03/06/18 20:00 03/07/18 00:00 03/07/18 04:00 Temperature 97.9 F 97.6 F 97.6 F Pulse Rate 64 65 66 Respiratory Rate 18 16 16 Blood Pressure 149/69 H 118/56 L 133/67 Pulse Oximetry 98 98 99 10/10/18 07:34 03/07/18 10:30 03/07/18 12:00 Temperature 97.7 F 97.4 F L Pulse Rate 66 67 78 Respiratory Rate 16 16 Blood Pressure 142/65 H 121/56 L Pulse Oximetry 98 99 Intake & Output 03/06/18 03/07/18 03/07/18 18:59 06:59 18:59 Weight 83.007 kg Other: # Voids 1 Date of Last Bowel Movement 03/05/18 03/05/18 03/05/18 Weight On Admission 83.007 kg Narrative: GENERAL: Well-nourished, well-developed adult female in no obvious distress. SKIN: Warm and dry. HEAD: Atraumatic. Normocephalic. CARDIOVASCULAR: Regular rate and rhythm. RESPIRATORY: No accessory muscle use. Clear to auscultation. Breath sounds equal bilaterally. GASTROINTESTINAL: Abdomen soft, non-tender, non-distended. Positive bowel sounds. MUSCULOSKELETAL: Extremities without clubbing, cyanosis, or edema. No obvious deformities. Mild cervical spine tenderness. NEUROLOGICAL: Awake and alert. No obvious cranial nerve deficits. Motor grossly within normal limits. Normal speech. Facial features equal without droop. Results Procedures completed during hospitalization: none - Impressions ITS Impressions Cervical Spine CT 03/05/18 19:51 CONCLUSION: 1. Moderate degenerative disc disease and facet arthropathy with a minimal degenerative anterolisthesis of C3 on C4. Advanced left-sided facet arthropathy at C3-4. Partial fusion across C4-5. No acute fracture. Head CT 03/05/18 19:51 CONCLUSION: 1. No acute intracranial abnormalities. Sinusitis of the septated left sphenoid. . Carotid Doppler Study 03/06/18 00:00 CONCLUSION: There is moderate atherosclerotic plaquing at both carotid bifurcations. However, no focal high-grade or hemodynamically significant stenosis is demonstrated. Head MRA 03/06/18 00:00 CONCLUSION: 1. There is a focal short segment stenosis involving the A1 segment on the left. This most likely from atherosclerotic changes. 2. Otherwise, the rest of the MRA of the brain is within normal limits for patient's age. Head MRI 03/06/18 07:03 CONCLUSION: 1. No acute hemorrhage, mass or infarction. 2. Opacification left sphenoid sinus. 3. Atrophy and chronic small vessel ischemic changes. Cervical Spine MRI 03/06/18 09:29 CONCLUSION: 1. There is mild to moderate primary degenerative changes, disc degeneration and disc space narrowing throughout the cervical spine. 2. Very mild anterior spondylolisthesis of C3 over C4 and C7 over T1. 3. Mild broad-based bulging C3-4 and C5-6. 4. Diffuse broad-based bulging C6-7. 5. Bilateral facet arthritis at multiple levels. Discharge Plan - Discharge Disposition Patient Disposition: 01 Discharge Home - Discharge Condition Condition: Stable - Discharge Order Discharge Orders: Discharge Order (Routine); Ordered 03/07/18 Ordered By: Mikaela Canchola - Physicians Team Primary Care Provider: Yi Oliveira Attending Provider: Natacha Sarkar Other Providers: Vernon Anderson MD ; Anthonya,Anthonya
== END 2018-03-07 15:46 | disposition home or self-care (01) ==
LOC: NEPE 18:26 → NEDA 18:26 → NEDH 03-06 02:43 → NEPHCDU 03-06 13:59
PROVIDERS: ADMIT Internal Medicine; ATTEND Internal Medicine